=== PATIENT | female | born 2000 | race Caucasian/White ===

== ENCOUNTER 2022-04-09 13:02 | Emergency (ER) | payer OTHER | END 2022-04-09 15:09 | disposition home or self-care (01) | LOC: FER 13:02 | DX: Z20.822 Contact with and (suspected) exposure to COVID-19 (principal) | CPT/HCPCS: 99282; U0002 ==

== ENCOUNTER 2022-06-11 21:57 | Emergency (ER) | payer OTHER ==
[2022-06-11] MEDS ORDERED: PRENATAL FORMU1 EACH PO (23:50)
== END 2022-06-12 00:07 | disposition home or self-care (01) ==
LOC: FER 21:57
DX: O99.891 Other specified diseases and conditions complicating pregnancy (principal); R10.30 Lower abdominal pain, unspecified; Z88.8 Allergy status to other drugs, medicaments and biological substances; Z3A.01 Less than 8 weeks gestation of pregnancy
CPT/HCPCS: 36415; 84702; 99284

== ENCOUNTER 2022-06-17 23:25 | Emergency (ER) | payer OTHER ==
[~2022-06-17 23:25] MED LIST: PRENATAL FORMU1 EACH PO
[2022-06-18 00:25] LABS: BASOPHIL 0.4 % (0-2); EOSINOPHIL 0.6 % (0-5); HCT 38.3 % (37.0-47.0); HGB 12.9 g/dl (12.5-16.0); LYMPHOCYTE 23.3 % (15-48); MCH 31.2 pg (25.0-31.0); MCHC 33.7 g/dL (32.0-36.0); MCV 92.7 fL (78.0-100.0); MONOCYTE 8.6 % (0-12); MPV 9.4 fL (6.0-9.5); NEUTROPHIL 66.9 % (41-80); NRBC 0; PLT 222 K/uL (150-400); RBC 4.13 M/uL (4.20-5.40); RDW 11.7 % (11.5-14.0); WBC 10.9 K/uL (4.0-10.5)
[2022-06-18 00:46] LABS: ALBUMIN 3.7 g/dL (3.4-5.0); BILIRUBIN - TOTAL 0.2 mg/dL (0.2-1.0); BUN/CREAT RATIO (CALC) 23.3 RATIO; CREATININE 0.6 mg/dL (0.51-0.95); POTASSIUM 3.5 mmol/L (3.5-5.1); TOTAL PROTEIN 6.7 g/dL (6.4-8.2)
[2022-06-18 01:08] LABS: BILIRUBIN NEGATIVE (NEGATIVE); BLOOD 3+ Ery/uL (NEGATIVE); CLARITY CLEAR (CLEAR); COLOR YELLOW (YELLOW); GLUCOSE (U) NORMAL (NORMAL); LEUKOCYTES NEGATIVE Leu/uL (NEGATIVE); NITRITE NEGATIVE (NEGATIVE); PROTEIN NEGATIVE (NEGATIVE); SPECIFIC GRAVITY >=1.030 (1.001-1.030); UROBILINOGEN 0.2 mg/dL (0.2-1.0)
[2022-06-20 21:08] LABS: CHLAMYDIA TRACHOMATIS, NAA Negative (Negative); NEISSERIA GONORRHOEAE, NAA Negative (Negative)
== END 2022-06-18 04:24 | disposition home or self-care (01) ==
LOC: FER 23:25
PROVIDERS: Emergency Medicine
DX: O46.8X1 Other antepartum hemorrhage, first trimester (principal); O34.81 Maternal care for other abnormalities of pelvic organs, first trimester; N83.11 Corpus luteum cyst of right ovary; O99.331 Smoking (tobacco) complicating pregnancy, first trimester; F17.200 Nicotine dependence, unspecified, uncomplicated; Z88.8 Allergy status to other drugs, medicaments and biological substances; Z3A.01 Less than 8 weeks gestation of pregnancy; Z28.310 Unvaccinated for COVID-19
CPT/HCPCS: 36415; 76801; 80053; 81001; 84702; 85025; 87210; 87491; 87591